=== PATIENT | male | born 1990 | race Caucasian/White ===

== ENCOUNTER → 2021-08-15 16:02 | Outpatient (BNVA) | payer OTHER, SELFPAY | PROVIDERS: Family Provider Emergency Medicine; Visit Provider Registered Nurse Neonatal Intensive Care | DX: M19.072 Primary osteoarthritis, left ankle and foot (principal); M79.89 Other specified soft tissue disorders; M77.32 Calcaneal spur, left foot; M79.672 Pain in left foot | CPT/HCPCS: 73630 ==

== ENCOUNTER → 2022-12-26 15:59 | Outpatient (BNVA) | payer OTHER, SELFPAY | PROVIDERS: Family Provider Emergency Medicine; Visit Provider Family Medicine | DX: I10 Essential (primary) hypertension (principal); Z68.39 Body mass index [BMI] 39.0-39.9, adult; F17.200 Nicotine dependence, unspecified, uncomplicated; N63.10 Unspecified lump in the right breast, unspecified quadrant; Z71.6 Tobacco abuse counseling; F10.20 Alcohol dependence, uncomplicated; N62 Hypertrophy of breast | CPT/HCPCS: 80053; 80061; 83036; 85025 ==

== ENCOUNTER → 2023-03-25 14:46 | Outpatient (BNVA) | payer OTHER, SELFPAY | PROVIDERS: Family Provider Emergency Medicine; PCP Family Medicine; Visit Provider Nurse Practitioner Family | DX: M79.671 Pain in right foot (principal) | CPT/HCPCS: 73630 ==

== ENCOUNTER → 2023-04-09 14:13 | Outpatient (BNVA) | payer OTHER, SELFPAY | PROVIDERS: Family Provider Emergency Medicine; PCP Family Medicine; Visit Provider Podiatrist Foot & Ankle Surgery | DX: M77.51 Other enthesopathy of right foot and ankle (principal); Q66.71 Congenital pes cavus, right foot | CPT/HCPCS: 99203 ==